=== PATIENT | female | born 2000 | race Caucasian/White ===

== ENCOUNTER → 2024-08-24 | Outpatient (CLI) | payer BC ==
[2024-08-24 14:49] LABS: Basophils # (A) 0.03 X 10*3/uL (0.00-0.10); Basophils % (A) 0.5 %; Eosinophils % (A) 3.2 %; HCT 41.3 % (37.2-46.3); HGB 12.5 g/dL (12.0-15.0); Lymphocytes # (A) 1.54 X 10*3/uL (0.90-5.00); Lymphocytes % (A) 24.5 %; MCH 25.7 pg (27.0-32.0); MCHC 30.3 g/dL (32.0-37.0); Mean Platelet Volume 9.6 FL (9.5-12.2); Monocytes # (A) 0.61 X 10*3/uL (0.20-1.00); Monocytes % (A) 9.7 %; NRBC Per 100 WBC 0.02 X 10*3/uL (0.00-0.01); Neutrophils # (A) 3.89 X 10*3/uL (1.80-7.70); Neutrophils % (A) 61.9 %; Platelet Count 353 X 10*3/uL (140-440); RBC 4.86 X 10*6/uL (4.10-5.20); RDW 12.7 % (11.5-14.5); WBC 6.28 X 10*3/uL (4.50-10.00)
[2024-08-24 15:35] LABS: Blood Urea Nitrogen 8.6 mg/dL (9.0-27.0); Carbon Dioxide 24.7 mmol/L (21.6-31.8); Chloride 106 mmol/L (96-109); Glucose 87 mg/dL (70-110); Potassium 4.5 mmol/L (3.5-5.5); Sodium 141 mmol/L (135-145)
== END | disposition home or self-care (01) ==
LOC: LABPAT 10:39
PROVIDERS: ATTEND Obstetrics & Gynecology
DX: Z01.812 Encounter for preprocedural laboratory examination (principal); R10.2 Pelvic and perineal pain
CPT/HCPCS: 80051; 82565; 82947; 84520; 85025; 86850; 86900; 86901; 87086

== ENCOUNTER 2024-08-27 06:21 | Inpatient (IN) | payer BC ==
[2024-08-27] MEDS ORDERED: LIDOCAINE 1% (10MG/ML) FOR IV START INTRADERMA PRN (06:47)
[2024-08-27] MEDS: IV FLUID CONTINUATION 1,000 ML IV ONE (06:50)
[2024-08-27] MEDS: DEXAMETHASONE SOD PHOSPHATE 4 MG/ML 1 ML VIAL IV ONE (07:18)
[2024-08-27] MEDS: LACTATED RINGERS 1,000 ML IV SCH (07:19)
[2024-08-27] MEDS: ONDANSETRON 4 MG/2 ML VIAL IVP ONE (07:19)
[2024-08-27] MEDS: SCOPOLAMINE 1 MG/72 HR PATCH TRANSDERM STA (07:19)
--- NOTE | 2024-08-27 07:21 | P.HPOB ---
History of Present Illness H&P Date: 08/27/24 Chief Complaint: bilateral dermoid cysts,pelvic pain 24 year old G0 presents for laparotomy and bilateral ovarian cystectomy, possible oopherectomy. she has been diagnosed with large bilateral dermoid cysts. Review of Systems All systems: negative Constitutional: Denies chills, Denies fever Eyes: denies blurred vision, denies pain Ears, nose, mouth and throat: Denies headache, Denies sore throat Cardiovascular: Denies chest pain, Denies shortness of breath Respiratory: Denies cough Gastrointestinal: Denies abdominal pain, Denies diarrhea, Denies nausea, Denies vomiting Genitourinary: Denies dysuria, Denies hematuria Musculoskeletal: Denies myalgias Integumentary: Denies pruritus, Denies rash Neurological: Denies numbness, Denies weakness Psychiatric: Denies anxiety, Denies depression Endocrine: Denies fatigue, Denies weight change Past Medical History Past Medical History: No Reported History Additional Past Medical History / Comment(s): has had us done on thyroid which is slightly enlarged History of Any Multi-Drug Resistant Organisms: None Reported Past Surgical History: No Surgical Hx Reported Additional Past Surgical History / Comment(s): oral surgery Past Anesthesia/Blood Transfusion Reactions: No Reported Reaction Smoking Status: Never smoker - Past Family History Mother Family Medical History: Cancer Additional Family Medical History / Comment(s): breast- Father Family Medical History: COPD Additional Family Medical History / Comment(s): cardiac issues - Medications and Allergies Home Medications Medication Instructions Recorded Confirmed Type Amitriptyline HCl [Elavil] 25 mg PO HS 08/24/24 08/27/24 History HYDROcodone/APAP 7.5-325MG [[place] 1 tab PO Q6HR PRN 08/24/24 08/27/24 History 7.5-325] Allergies Allergy/AdvReac Type Severity Reaction Status Date / Time nickel Allergy Rash/Hives Verified 08/27/24 06:48 Penicillins Allergy Unknown Verified 08/27/24 06:48 Childhood Exam Osteopathic Statement: *. No significant issues noted on an osteopathic structural exam other than those noted in the History and Physical/Consult. Vital Signs Temp Pulse Resp BP Pulse Ox 08/27/24 06:59 97.4 F L 102 H 16 147/84 98 Intake and Output 0308/27/24 08/27/24 22:59 06:59 14:59 Other: Weight 79.8 kg Heart: Regular rate and rhythm Lungs: Clear to auscultation bilaterally Abdomen: Soft, nontender Extremities: Negative Homans sign bimanual exam: Patient feels full in both adnexa; and limited due to the patient unable to tolerate a proper exam Assessment and Plan (1) Dermoid cyst of both ovaries Current Visit: Yes Status: Acute Code(s): D27.0 - BENIGN NEOPLASM OF RIGHT OVARY; D27.1 - BENIGN NEOPLASM OF LEFT OVARY SNOMED Code(s): 968037616 Plan: 1. laparotomy with removal of bilateral ovarian cysts, possible oopherectomy Consent: I have discussed the risks, benefits and alternative therapies for the above-mentioned procedure and for both sedation/analgesia as well as necessary blood product administration, if indicated, as they pertain to this patient. The patient has indicated understanding and acceptance of the risks and procedures discussed.
[2024-08-27] MEDS ORDERED: GLYCOPYRROLATE 0.2 MG/ML 2 ML VIAL ONE (07:25)
[2024-08-27] MEDS ORDERED: SUCCINYLCHOLINE CHLORIDE 200 MG/10 ML VIAL IV ONE (07:25)
[2024-08-27] MEDS ORDERED: KETAMINE HCL IN 0.9 % NACL 50 MG/5 ML SYRINGE ONE (07:25)
[2024-08-27] MEDS ORDERED: ROCURONIUM 10 MG/ML (5 ML VIAL) IV ONE (07:25)
[2024-08-27] MEDS ORDERED: HYDROmorphone (PF) 1 MG/ML ONE (07:25)
[2024-08-27] MEDS ORDERED: fentaNYL (PF) 50 MCG/ML 2 ML AMP ONE (07:25)
[2024-08-27] MEDS ORDERED: NEOSTIGMINE 1 MG/ML 10 ML VIAL ONE (07:25)
[2024-08-27] MEDS ORDERED: LIDOCAINE 1% INJ 10MG/ML (20 ML MDV) ONE (07:25)
[2024-08-27] MEDS ORDERED: PROPOFOL 10 MG/ML 20 ML VIAL IV ONE (07:25)
[2024-08-27] MEDS ORDERED: MIDAZOLAM 2 MG/2 ML VIAL ONE (07:25)
[2024-08-27] MEDS: LACTATED RINGERS 1,000 ML IV ONE (08:12)
--- NOTE | 2024-08-27 08:41 | P.OP ---
Date of Procedure: 08/27/24 Preoperative Diagnosis: 1. bilateral dermoid cysts 2. pelvic pain Postoperative Diagnosis: same Procedure(s) Performed: Exploratory laparotomy with removal of bilateral dermoid cysts of the ovary Anesthesia: CAROA Surgeon: Ira Mas Beer Runner #1: Ella Jiang Estimated Blood Loss (ml): 100 IV fluids (ml): 1,000 Urine output (ml): 100 Pathology: other (Left and right dermoid cysts) Condition: stable Disposition: PACU Indications for Procedure: For several weeks this patient has been having increasing pelvic pain. MRI showed bilateral dermoid cysts measuring 8 and 9 cm. Operative Findings: Normal uterus and fallopian tubes, enlarged ovaries on both sides right greater than left with dermoid cysts noted in each ovary Description of Procedure: Patient was taken the operating room where general anesthesia was obtained without difficulty. She is prepped draped normal sterile fashion dorsal supine position. A Pfannenstiel skin incision was made the scalpel carried through to the underlying layer fascia with the Bovie. The fascia was incised in the midline carried bilaterally with Crawford scissors. The superior aspect the fascial incision was grasped with Jeffrey clamps elevated, and the rectus muscles dissected off with the Crawford's. Attention was then turned to the inferior aspect of the same incision which in a similar fashion was grasped tented up and the underlying rectus muscles were from the fascia with the males. The rectus muscles were the midline the peritoneum was identified tented up and entered sharply with the Metzenbaum scissors. Incision was extended superiorly inferiorly with good visualization of the bladder. The left ovary was then delivered through the incision and a blue towel was wrapped around the area so no spillage would happen. The Bovie was used to make a linear incision along the ovary. The ovarian tissue was from the cystic tissue using Allis clamps, blunt dissection and Metzenbaum's. There were 2 cysts in the left ovary. 1 was serous filled and 1 was a dermoid filled with sebaceous fluid and hair. Both of these were removed. Hemostasis was then assured inside the ovary. The space was closed with 3-0 Vicryl in a running fashion. The stroma of the ovary was repaired with 3-0 Vicryl in a running fashion. Excellent hemostasis assured. The right ovary was then delivered through the incision. A linear incision was made with this Bovie on this ovary. It was noted that there was sebaceous fluid and hair coming from the cyst. The cystic wall was from the underlying ovary using blunt dissection and Metzenbaum's. Cyst was easily removed and sent to pathology. The space was closed with 3-0 Vicryl in a running fashion. The external stroma was then repaired with 3-0 Vicryl in a running locked fashion. Hemostasis assured. The fascia was then reapproximated using 0 Vicryl in a running fashion. Subcutaneous tissue was closed with 3-0 Vicryl in a running fashion. Skin was closed with 4-0 Monocryl. Patient tolerated procedure well. Sponge and instrument counts correct x 2. She was taken to recovery in stable condition.
[2024-08-27] MEDS: KETOROLAC 15 MG/ML 1 ML VIAL IVP STA (08:42)
[2024-08-27] MEDS: HYDROmorphone 0.5 MG/0.5 ML SYRINGE IVP PRN (08:44)
[2024-08-27] MEDS ORDERED: diphenhydrAMINE 25 MG CAP PO PRN (08:53)
[2024-08-27] MEDS ORDERED: ONDANSETRON 4 MG/2 ML VIAL IVP PRN (08:53)
[2024-08-27] MEDS ORDERED: diphenhydrAMINE 50 MG/ML 1 ML VIAL IVP PRN (08:53)
[2024-08-27] MEDS: ACETAMINOPHEN TAB 500 MG TAB PO SCH (13:56)
[2024-08-27] MEDS: KETOROLAC 15 MG/ML 1 ML VIAL IVP PRN (15:10)
[2024-08-27] MEDS: droPERidol 2.5 MG/ML VIAL IVP ONE (19:58)
[2024-08-27] MEDS: SENNOSIDES-DOCUSATE SODIUM 1 EACH TAB PO SCH (21:05)
[2024-08-27] MEDS: AMITRIPTYLINE HCL 25 MG TAB PO SCH (21:06)
[2024-08-28] MEDS: IBUPROFEN 800 MG TAB PO SCH (02:37)
[2024-08-28] MEDS: LACTATED RINGERS 500 ML IV ONE (05:45)
[2024-08-28] MEDS: LACTATED RINGERS 1,000 ML IV SCH (05:45)
[2024-08-28 05:49] LABS: Basophils % (A) 0 %; Eosinophils % (A) 0 %; HGB 10.2 gm/dL (11.4-16.0); Lymphocytes # (A) 1.5 k/uL (1.0-4.8); Lymphocytes % (A) 14 %; MCH 26.2 pg (25.0-35.0); MCHC 30.9 g/dL (31.0-37.0); MCV 84.5 fL (80.0-100.0); Mean Platelet Volume 7.2; Monocytes # (A) 0.9 k/uL (0-1.0); Monocytes % (A) 8 %; Neutrophils # (A) 8.4 k/uL (1.3-7.7); Neutrophils % (A) 76 %; Platelet Count 259 k/uL (150-450); RDW 12.5 % (11.5-15.5)
[2024-08-28] MEDS: SIMETHICONE 80 MG CHEWABLE PO PRN (21:00)
--- NOTE | 2024-08-29 08:22 | P.PN ---
Progress Note - Text Progress Note Date: 08/28/24 Exploratory laparotomy with removal of bilateral ovarian cysts postop day 1 Patient seen and examined. Denies nausea, vomiting, chest pain, shortness of breath or calf pain. Her pain seems to be controlled with Motrin Tylenol. She has not voided yet on her own, had to be straight cathed earlier. She is feeling dizzy when she gets up to the bedside. Vital signs stable Heart regular rate and rhythm Abdomen soft, nontender, incision is clean, dry, intact. Assessment 1 status post exploratory laparotomy with removal of bilateral ovarian cysts Plan 1. Increase ambulation 2. Regular diet
--- NOTE | 2024-08-29 08:24 | P.PN ---
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 She is struggling today with her pain control and moving around. She denies nausea, vomiting, chest pain, shortness of breath or calf pain. Abdomen: Incision is clean, dry, intact Assessment 1 status post exploratory laparotomy with removal of bilateral ovarian cysts Plan 1 get better pain control with Motrin, Tylenol and oxycodone as needed. 2. Increase ambulation 3. Regular diet
[2024-08-29 16:24] VITALS: BP 102/65; PULSE 81; RESP 14; TEMP 97.8
--- NOTE | 2024-08-29 16:43 | P.DS ---
Providers Date of admission: 08/27/24 06:21 Expected date of discharge: 08/29/24 Attending physician: Ira Mas Primary care physician: Maxi Nielsen MD - Discharge Diagnosis(es) (1) Dermoid cyst of both ovaries Current Visit: Yes Status: Acute (2) Status post laparotomy Current Visit: Yes Status: Acute Hospital Course: Patient presented for exploratory laparotomy with removal of bilateral dermoid cysts. She underwent this procedure without complication. Postoperative course has been uneventful. Her pain is now controlled, she is tolerating her diet, passing flatus, voiding and ambulating without difficulty. She denies nausea, vomiting, chest pain, shortness of breath or calf pain. Patient will be discharged home postoperative day #2 in stable condition to follow-up with me in 2 weeks. Plan - Discharge Summary Discharge Rx Participant: Yes New Discharge Prescriptions: No Action HYDROcodone/APAP 7.5-325MG [[place] 7.5-325] 1 tab PO Q6HR PRN PRN Reason: Pain Amitriptyline HCl [Elavil] 25 mg PO HS Discharge Medication List Amitriptyline HCl [Elavil] 25 mg PO HS 08/24/24 [History] HYDROcodone/APAP 7.5-325MG [[place] 7.5-325] 1 tab PO Q6HR PRN 08/24/24 [History] Follow up Appointment(s)/Referral(s): Ira aMs DO [Doctor of Osteopathic Medicine] - 2 Weeks Discharge Disposition: HOME SELF-CARE
== END 2024-08-29 17:48 | disposition home or self-care (01) | DRG 743 ==
LOC: 2ORMAIN 06:21 → 4FBP 10:27
PROVIDERS: ADMIT Obstetrics & Gynecology; ATTEND Obstetrics & Gynecology
PROC: 0UB20ZZ Excision of Bilateral Ovaries, Open Approach (ICD-10-PCS; principal; 2024-08-27 07:30)
DX: D27.0 Benign neoplasm of right ovary (principal); E04.9 Nontoxic goiter, unspecified; F41.9 Anxiety disorder, unspecified; R10.2 Pelvic and perineal pain; D27.1 Benign neoplasm of left ovary; Z80.3 Family history of malignant neoplasm of breast; Z80.8 Family history of malignant neoplasm of other organs or systems; Z88.0 Allergy status to penicillin; Z79.899 Other long term (current) drug therapy
CPT/HCPCS: 81025; 85025; 88307